=== PATIENT | male | born 1955 | race Caucasian/White ===

== ENCOUNTER 2019-01-29 03:47 | Inpatient (IN) | payer MEDICARE, OTHER ==
[2019-01-29] MEDS: SOD CHLORIDE 0.9% 1,000 ML IV (04:36)
[2019-01-29] MEDS: ONDANSETRON 4 MG INJ IV (04:37)
[2019-01-29] MEDS: morphine 4 MG/ML VIAL IV ×2 (04:37→07:25)
[2019-01-29 04:48] LABS: ADD MAN DIFF? NO
[2019-01-29 04:50] LABS: WHITE BLOOD COUNT 8.4 10^3/ul (4.8-10.8)
[2019-01-29 04:51] LABS: BASOPHIL # 0.1 10^3/ul (0.0-0.1); BASOPHILS % 0.6 % (0.0-2.0); EOSINOPHILS # 0.2 10^3/ul (0.0-0.5); EOSINOPHILS % 2.6 % (0.0-7.0); HEMATOCRIT 45.2 % (42.0-52.0); HEMOGLOBIN 14.6 g/dl (14.0-18.0); LYMPHOCYTES # 1.3 10^3/ul (0.8-2.9); LYMPHOCYTES % 15.5 % (15.0-51.0); MEAN CORPUSCULAR HEMOGLOBIN 31.7 pg (29.0-33.0); MEAN CORPUSCULAR HGB CONC 32.3 g/dl (32.0-37.0); MEAN CORPUSCULAR VOLUME 98.3 fl (82.0-101.0); MEAN PLATELET VOLUME 10.1 fl (7.4-10.4); MONOCYTES % 12.3 % (0.0-11.0); NEUTROPHIL # 5.8 10^3/ul (1.6-7.5); NEUTROPHILS % 68.6 % (39.0-77.0); PLATELET COUNT 296 10^3/UL (140-415)
[2019-01-29 04:54] LABS: INR 0.95; PROTIME 12.8 Sec (11.9-14.9)
[2019-01-29 04:55] LABS: PARTIAL THROMBOPLASTIN TIME 28.7 Sec (23.0-35.0)
[2019-01-29 04:56] LABS: ALANINE AMINOTRANSFERASE 21 IU/L (13-69); ALBUMIN 3.4 g/dl (3.3-4.9); ALKALINE PHOSPHATASE 72 IU/L (42-121); ANION GAP 5 (5-13); ASPARTATE AMINO TRANSFERASE 34 IU/L (15-46); BILIRUBIN,INDIRECT 0.8 mg/dl (0-1.1); BILIRUBIN,TOTAL 0.8 mg/dl (0.2-1.3); BLOOD UREA NITROGEN 16 mg/dl (7-20); CALCIUM 9.2 mg/dl (8.4-10.2); CARBON DIOXIDE 33 mmol/L (21-31); CHLORIDE 100 mmol/L (97-110); CREATININE 0.91 mg/dl (0.61-1.24); Estimated GFR > 60 mL/min (>60); GLUCOSE 103 mg/dl (70-220); POTASSIUM 4.6 mmol/L (3.5-5.1); SODIUM 138 mmol/L (135-144); TOTAL PROTEIN 7.6 g/dl (6.1-8.1)
[2019-01-29 05:08] LABS: TROPONIN-I < 0.012 ng/ml (0.000-0.120)
[2019-01-29 05:46] LABS: ADD UMIC NO; UR ASCORBIC ACID NEGATIVE (NEGATIVE); UR BILIRUBIN (Dip) NEGATIVE (NEGATIVE); UR BLOOD (Dip) NEGATIVE (NEGATIVE); UR CLARITY CLEAR (CLEAR); UR COLOR YELLOW (YELLOW); UR GLUCOSE (Dip) NEGATIVE (NEGATIVE); UR KETONES (Dip) NEGATIVE (NEGATIVE); UR LEUKOCYTE ESTERASE (Dip) NEGATIVE Leu/ul (NEGATIVE); UR NITRITE (Dip) NEGATIVE (NEGATIVE); UR SPECIFIC GRAVITY (Dip) 1.018 (1.003-1.030); UR TOTAL PROTEIN (Dip) NEGATIVE (NEGATIVE); UR UROBILINOGEN (Dip) NEGATIVE (NEGATIVE)
[2019-01-29] MEDS: ALBUTEROL 0.083% (NEB) 2.5 MG/3 ML AMP NEB (05:46)
[2019-01-29] MEDS: IPRATROPIUM (NEB) 0.5 MG/2.5 ML AMP NEB (05:46)
[2019-01-29] MEDS ORDERED: ONDANSETRON 4 MG INJ IV ×2 (06:00→07:00)
[2019-01-29] MEDS ORDERED: ACETAMINOPHEN 325 MG TAB PO ×2 (06:00→07:00)
[2019-01-29 06:16] LABS: LACTIC ACID 1.3 mmol/L (0.5-2.0)
[2019-01-29] MEDS ORDERED: NACL 0.9% 3 ML SYG IV (07:00)
[2019-01-29] MEDS: METHYLPREDNISOLONE 125 MG INJ IV (07:25)
[2019-01-29] MEDS: DIGOXIN 500 MCG INJ IV (07:39)
[2019-01-29] MEDS ORDERED: GUAIFENESIN/DM 5ML CUP PO (08:30)
[2019-01-29] MEDS ORDERED: VANCOMYCIN IV PER PHARMACY XX (08:30)
[2019-01-29] MEDS: CEFEPIME 1GM/50 ML (PMX) 50 ML IVPB (08:43)
[2019-01-29] MEDS ORDERED: NON-FORMULARY/PATIENT OWN MED (Fluticasone/Umeclidin/Vilanter (Trelegy Ellipta 100-62.5-25 IH (09:00)
[2019-01-29 09:33] LABS: LACTIC ACID 2.7 mmol/L (0.5-2.0)
[2019-01-29] MEDS: GABAPENTIN 100 MG CAP PO ×3 (09:45→21:04)
[2019-01-29] MEDS: ENOXAPARIN 40 MG/0.4 ML SYG SC (09:46)
[2019-01-29] MEDS: METOPROLOL 25 MG TAB PO (09:46)
[2019-01-29] MEDS: ASPIRIN 81 MG TAB PO (09:46)
[2019-01-29] MEDS: VANCOMYCIN 1.25 GM IN 0.9 % SOD CHLORIDE 250 ML IVPB (09:47)
[2019-01-29] MEDS ORDERED: VANCOMYCIN 1.25 GM IN 0.9 % SOD CHLORIDE 250 ML IVPB (10:00)
[2019-01-29] MEDS: HYDROCODONE/APAP (5/325) TAB PO ×4 (10:02→18:31)
[2019-01-29] MEDS ORDERED: METHYLPREDNISOLONE 40 MG INJ IV (11:00)
[2019-01-29] MEDS: LEVOFLOXACIN 500 MG TAB PO (11:37)
[2019-01-29 11:56] LABS: CREATINE KINASE 153 IU/L (23-200)
[2019-01-29 12:09] LABS: CK INDEX 0.5; CK-MB 0.76 ng/ml (0.0-2.4); TROPONIN-I < 0.012 ng/ml (0.000-0.120)
[2019-01-29] MEDS: METHYLPREDNISOLONE 40 MG INJ IV ×2 (13:16→21:04)
[2019-01-29] MEDS: ALBUTEROL/IPRATROPIUM (NEB) 3 ML AMP HHN ×2 (14:00→20:00)
[2019-01-29 17:10] LABS: CREATINE KINASE 150 IU/L (23-200)
[2019-01-29 17:23] LABS: CK INDEX 0.5; CK-MB 0.71 ng/ml (0.0-2.4); TROPONIN-I < 0.012 ng/ml (0.000-0.120)
[2019-01-29] MEDS ORDERED: VANCOMYCIN 1 GM 250 ML IVPB (21:00)
[2019-01-30] MEDS: HYDROCODONE/APAP (5/325) TAB PO ×6 (00:23→22:40)
[2019-01-30] MEDS: ALBUTEROL/IPRATROPIUM (NEB) 3 ML AMP HHN ×4 (02:00→20:00)
[2019-01-30] MEDS: ZOLPIDEM 5 MG TAB PO (02:08)
[2019-01-30] MEDS: METHYLPREDNISOLONE 40 MG INJ IV ×3 (05:12→22:40)
[2019-01-30 07:51] LABS: ADD MAN DIFF? NO
[2019-01-30 08:01] LABS: WHITE BLOOD COUNT 9.1 10^3/ul (4.8-10.8)
[2019-01-30 08:01] LABS: ABNORMAL IP MESSAGE 1; BASOPHILS % 0.1 % (0.0-2.0); HEMATOCRIT 41.1 % (42.0-52.0); HEMOGLOBIN 13.4 g/dl (14.0-18.0); LYMPHOCYTES # 0.5 10^3/ul (0.8-2.9); LYMPHOCYTES % 5.1 % (15.0-51.0); MEAN CORPUSCULAR HEMOGLOBIN 31.8 pg (29.0-33.0); MEAN CORPUSCULAR HGB CONC 32.6 g/dl (32.0-37.0); MEAN CORPUSCULAR VOLUME 97.4 fl (82.0-101.0); MEAN PLATELET VOLUME 9.8 fl (7.4-10.4); MONOCYTE # 0.5 10^3/ul (0.3-0.9); MONOCYTES % 5.5 % (0.0-11.0); NEUTROPHIL # 8.1 10^3/ul (1.6-7.5); NEUTROPHILS % 88.8 % (39.0-77.0); PLATELET COUNT 260 10^3/UL (140-415); POSITIVE DIFF @See below; RED BLOOD COUNT 4.22 10^6/ul (4.70-6.10); RED CELL DISTRIBUTION WIDTH 12.8 % (11.5-14.5)
[2019-01-30 08:21] LABS: ALANINE AMINOTRANSFERASE 24 IU/L (13-69); ALBUMIN 3.1 g/dl (3.3-4.9); ALBUMIN/GLOBULIN RATIO 0.81; ALKALINE PHOSPHATASE 71 IU/L (42-121); ANION GAP 7 (5-13); ASPARTATE AMINO TRANSFERASE 24 IU/L (15-46); BILIRUBIN,INDIRECT 0.5 mg/dl (0-1.1); BILIRUBIN,TOTAL 0.5 mg/dl (0.2-1.3); BLOOD UREA NITROGEN 26 mg/dl (7-20); CALCIUM 9.1 mg/dl (8.4-10.2); CARBON DIOXIDE 28 mmol/L (21-31); CHLORIDE 103 mmol/L (97-110); CREATININE 1.02 mg/dl (0.61-1.24); Estimated GFR > 60 mL/min (>60); GLUCOSE 115 mg/dl (70-220); MAGNESIUM 1.9 mg/dl (1.7-2.5); POTASSIUM 4.5 mmol/L (3.5-5.1); SODIUM 138 mmol/L (135-144); TOTAL PROTEIN 6.9 g/dl (6.1-8.1)
[2019-01-30 08:48] LABS: THYROID STIMULATING HORMONE 0.093 MIU/L (0.465-4.680)
[2019-01-30] MEDS ORDERED: METHYLPREDNISOLONE 40 MG INJ IV (09:00)
[2019-01-30] MEDS: LEVOFLOXACIN 500 MG TAB PO (09:16)
[2019-01-30] MEDS: GABAPENTIN 100 MG CAP PO ×3 (09:16→21:54)
[2019-01-30] MEDS: ASPIRIN 81 MG TAB PO (09:16)
[2019-01-30] MEDS: ENOXAPARIN 40 MG/0.4 ML SYG SC (09:22)
[2019-01-30] MEDS: DILTIAZEM (CD) 120 MG CAP PO (11:24)
[2019-01-31] MEDS: ALBUTEROL/IPRATROPIUM (NEB) 3 ML AMP HHN ×4 (01:55→20:00)
[2019-01-31] MEDS: HYDROCODONE/APAP (5/325) TAB PO ×4 (02:53→15:13)
[2019-01-31] MEDS: METHYLPREDNISOLONE 40 MG INJ IV ×3 (06:00→21:40)
[2019-01-31] MEDS: ASPIRIN 81 MG TAB PO (08:27)
[2019-01-31] MEDS: LEVOFLOXACIN 500 MG TAB PO (08:27)
[2019-01-31] MEDS: GABAPENTIN 100 MG CAP PO ×3 (08:27→21:40)
[2019-01-31] MEDS: DILTIAZEM (CD) 120 MG CAP PO (08:27)
[2019-01-31] MEDS: ENOXAPARIN 40 MG/0.4 ML SYG SC (08:28)
[2019-01-31 17:24] LABS: FREE T4 (FREE THYROXINE) 1.01 ng/dl (0.78-2.44)
[2019-01-31] MEDS: HYDROCODONE/APAP (10/325) TAB PO (19:21)
[2019-01-31] MEDS: ZOLPIDEM 5 MG TAB PO (23:20)
[2019-02-01] MEDS: HYDROCODONE/APAP (10/325) TAB PO ×4 (01:40→20:31)
[2019-02-01] MEDS: ALBUTEROL/IPRATROPIUM (NEB) 3 ML AMP HHN ×5 (02:00→20:34)
[2019-02-01] MEDS: METHYLPREDNISOLONE 40 MG INJ IV ×3 (06:24→22:04)
[2019-02-01] MEDS: ASPIRIN 81 MG TAB PO (08:07)
[2019-02-01] MEDS: DILTIAZEM (CD) 120 MG CAP PO (08:08)
[2019-02-01] MEDS: GABAPENTIN 100 MG CAP PO ×3 (08:08→20:34)
[2019-02-01] MEDS: LEVOFLOXACIN 500 MG TAB PO (08:08)
[2019-02-01] MEDS: ENOXAPARIN 40 MG/0.4 ML SYG SC (08:09)
[2019-02-02] MEDS: ALBUTEROL/IPRATROPIUM (NEB) 3 ML AMP HHN ×4 (01:13→20:08)
[2019-02-02] MEDS: ZOLPIDEM 5 MG TAB PO (01:28)
[2019-02-02] MEDS: HYDROCODONE/APAP (10/325) TAB PO ×4 (02:28→20:44)
[2019-02-02] MEDS: METHYLPREDNISOLONE 40 MG INJ IV ×3 (05:41→21:01)
[2019-02-02 08:30] LABS: ADD MAN DIFF? NO
[2019-02-02] MEDS: GABAPENTIN 100 MG CAP PO ×3 (08:30→19:55)
[2019-02-02] MEDS: LEVOFLOXACIN 500 MG TAB PO (08:30)
[2019-02-02] MEDS: DILTIAZEM (CD) 120 MG CAP PO (08:30)
[2019-02-02] MEDS: ASPIRIN 81 MG TAB PO (08:30)
[2019-02-02] MEDS: ENOXAPARIN 40 MG/0.4 ML SYG SC (08:32)
[2019-02-02 08:34] LABS: WHITE BLOOD COUNT 6.7 10^3/ul (4.8-10.8)
[2019-02-02 08:34] LABS: ABNORMAL IP MESSAGE 1; BASOPHILS % 0.1 % (0.0-2.0); HEMATOCRIT 39.1 % (42.0-52.0); HEMOGLOBIN 12.8 g/dl (14.0-18.0); LYMPHOCYTES # 0.5 10^3/ul (0.8-2.9); LYMPHOCYTES % 6.7 % (15.0-51.0); MEAN CORPUSCULAR HEMOGLOBIN 31.8 pg (29.0-33.0); MEAN CORPUSCULAR HGB CONC 32.7 g/dl (32.0-37.0); MEAN CORPUSCULAR VOLUME 97.3 fl (82.0-101.0); MEAN PLATELET VOLUME 9.6 fl (7.4-10.4); MONOCYTE # 0.3 10^3/ul (0.3-0.9); MONOCYTES % 3.9 % (0.0-11.0); NEUTROPHIL # 5.8 10^3/ul (1.6-7.5); NEUTROPHILS % 86.9 % (39.0-77.0); PLATELET COUNT 247 10^3/UL (140-415); POSITIVE DIFF @See below; RED BLOOD COUNT 4.02 10^6/ul (4.70-6.10); RED CELL DISTRIBUTION WIDTH 12.7 % (11.5-14.5)
[2019-02-02 09:28] LABS: ANION GAP 6 (5-13); BLOOD UREA NITROGEN 30 mg/dl (7-20); CALCIUM 8.9 mg/dl (8.4-10.2); CARBON DIOXIDE 30 mmol/L (21-31); CHLORIDE 101 mmol/L (97-110); CREATININE 0.84 mg/dl (0.61-1.24); Estimated GFR > 60 mL/min (>60); GLUCOSE 134 mg/dl (70-220); SODIUM 137 mmol/L (135-144)
[2019-02-02] MEDS: PANTOPRAZOLE 40 MG INJ IV (09:57)
[2019-02-02] MEDS: ALPRAZOLAM 0.25 MG TAB PO ×2 (11:20→19:55)
[2019-02-02] MEDS: TIOTROPIUM 18 MCG CAPSULE INHA DEV INH (12:09)
[2019-02-02] MEDS: FLUTICASONE/VILANTEROL 200-25 INH DEVICE INH (12:09)
[2019-02-02 12:22] LABS: HEPATITIS B SURFACE ANTIGEN NEGATIVE (NEGATIVE)
[2019-02-02 12:46] LABS: HEPATITIS C VIRAL ANTIBODY REACTIVE (NEGATIVE)
[2019-02-02] MEDS: PANTOPRAZOLE (EC) 40 MG TAB PO (18:05)
[2019-02-02 18:54] LABS: OCCULT BLOOD STOOL POSITIVE (NEGATIVE)
[2019-02-02] MEDS: MONTELUKAST 10 MG TAB PO (20:44)
[2019-02-03] MEDS: ZOLPIDEM 5 MG TAB PO ×2 (00:07→23:58)
[2019-02-03] MEDS: ALBUTEROL/IPRATROPIUM (NEB) 3 ML AMP HHN ×4 (01:45→20:00)
[2019-02-03] MEDS: HYDROCODONE/APAP (10/325) TAB PO ×4 (02:14→21:59)
[2019-02-03] MEDS: ALPRAZOLAM 0.25 MG TAB PO ×2 (05:47→19:54)
[2019-02-03] MEDS: METHYLPREDNISOLONE 40 MG INJ IV ×3 (05:47→21:58)
[2019-02-03] MEDS: PANTOPRAZOLE (EC) 40 MG TAB PO ×2 (05:47→17:23)
[2019-02-03 07:49] LABS: ADD MAN DIFF? NO
[2019-02-03 07:53] LABS: ABNORMAL IP MESSAGE 1; BASOPHILS % 0.4 % (0.0-2.0); HEMATOCRIT 37.7 % (42.0-52.0); HEMOGLOBIN 12.2 g/dl (14.0-18.0); LYMPHOCYTES # 0.5 10^3/ul (0.8-2.9); LYMPHOCYTES % 6.4 % (15.0-51.0); MEAN CORPUSCULAR HEMOGLOBIN 31.7 pg (29.0-33.0); MEAN CORPUSCULAR HGB CONC 32.4 g/dl (32.0-37.0); MEAN CORPUSCULAR VOLUME 97.9 fl (82.0-101.0); MEAN PLATELET VOLUME 9.5 fl (7.4-10.4); MONOCYTE # 0.4 10^3/ul (0.3-0.9); NEUTROPHILS % 83.6 % (39.0-77.0); PLATELET COUNT 235 10^3/UL (140-415); POSITIVE DIFF @See below; RED BLOOD COUNT 3.85 10^6/ul (4.70-6.10); RED CELL DISTRIBUTION WIDTH 12.8 % (11.5-14.5)
[2019-02-03 07:53] LABS: WHITE BLOOD COUNT 7.2 10^3/ul (4.8-10.8)
[2019-02-03 08:21] LABS: ALANINE AMINOTRANSFERASE 25 IU/L (13-69); ALKALINE PHOSPHATASE 49 IU/L (42-121); ANION GAP 5 (5-13); ASPARTATE AMINO TRANSFERASE 24 IU/L (15-46); BILIRUBIN,TOTAL 0.4 mg/dl (0.2-1.3); BLOOD UREA NITROGEN 26 mg/dl (7-20); CALCIUM 8.9 mg/dl (8.4-10.2); CARBON DIOXIDE 30 mmol/L (21-31); CHLORIDE 103 mmol/L (97-110); CREATININE 0.81 mg/dl (0.61-1.24); Estimated GFR > 60 mL/min (>60); GLUCOSE 128 mg/dl (70-220); POTASSIUM 5.1 mmol/L (3.5-5.1); SODIUM 138 mmol/L (135-144)
[2019-02-03 08:22] LABS: ALBUMIN/GLOBULIN RATIO 0.88; BILIRUBIN,INDIRECT 0.4 mg/dl (0-1.1); TOTAL PROTEIN 6.4 g/dl (6.1-8.1)
[2019-02-03] MEDS: FLUTICASONE/VILANTEROL 200-25 INH DEVICE INH (08:29)
[2019-02-03] MEDS: TIOTROPIUM 18 MCG CAPSULE INHA DEV INH (08:29)
[2019-02-03] MEDS: GABAPENTIN 100 MG CAP PO ×3 (08:29→19:54)
[2019-02-03] MEDS: ASPIRIN 81 MG TAB PO (08:29)
[2019-02-03] MEDS: DILTIAZEM (CD) 120 MG CAP PO (08:30)
[2019-02-03] MEDS: ENOXAPARIN 40 MG/0.4 ML SYG SC (08:31)
[2019-02-03 08:38] LABS: FREE T4 (FREE THYROXINE) 0.91 ng/dl (0.78-2.44)
[2019-02-03 08:39] LABS: FREE T3 2.38 pg/ml (2.77-5.27)
[2019-02-03 08:53] LABS: THYROID STIMULATING HORMONE 0.132 MIU/L (0.465-4.680)
[2019-02-03] MEDS: LEVOFLOXACIN 500 MG TAB PO (10:06)
[2019-02-03] MEDS: SUCRALFATE (100 MG/ML) 10ML CUP PO ×3 (14:31→19:54)
[2019-02-03] MEDS: MONTELUKAST 10 MG TAB PO (19:54)
[2019-02-04] MEDS: ALBUTEROL/IPRATROPIUM (NEB) 3 ML AMP HHN ×3 (01:48→13:27)
[2019-02-04] MEDS: HYDROCODONE/APAP (10/325) TAB PO ×3 (03:36→18:12)
[2019-02-04] MEDS: PANTOPRAZOLE (EC) 40 MG TAB PO ×2 (06:00→18:12)
[2019-02-04] MEDS: ALPRAZOLAM 0.25 MG TAB PO ×2 (07:44→19:35)
[2019-02-04] MEDS: DILTIAZEM (CD) 120 MG CAP PO (09:00)
[2019-02-04] MEDS: ENOXAPARIN 40 MG/0.4 ML SYG SC (09:00)
[2019-02-04] MEDS: TIOTROPIUM 18 MCG CAPSULE INHA DEV INH (09:54)
[2019-02-04] MEDS: FLUTICASONE/VILANTEROL 200-25 INH DEVICE INH (09:54)
[2019-02-04] MEDS: SUCRALFATE (100 MG/ML) 10ML CUP PO ×4 (09:56→20:45)
[2019-02-04] MEDS: METHYLPREDNISOLONE 40 MG INJ IV ×2 (09:56→20:45)
[2019-02-04] MEDS: GABAPENTIN 100 MG CAP PO ×3 (09:57→20:45)
[2019-02-04] MEDS: LEVOFLOXACIN 500 MG TAB PO (09:57)
[2019-02-04 17:36] LABS: ABNORMAL IP MESSAGE 1; HEMOGLOBIN 13.8 g/dl (14.0-18.0); MEAN CORPUSCULAR HEMOGLOBIN 31.6 pg (29.0-33.0); MEAN CORPUSCULAR HGB CONC 32.1 g/dl (32.0-37.0); MEAN CORPUSCULAR VOLUME 98.4 fl (82.0-101.0); MEAN PLATELET VOLUME 9.2 fl (7.4-10.4); PLATELET COUNT 285 10^3/UL (140-415); POSITIVE DIFF @See below; RED BLOOD COUNT 4.37 10^6/ul (4.70-6.10)
[2019-02-04 17:36] LABS: WHITE BLOOD COUNT 10.3 10^3/ul (4.8-10.8)
[2019-02-04 17:39] LABS: ADD MAN DIFF? YES
[2019-02-04 17:55] LABS: PHOSPHORUS 3.3 mg/dl (2.5-4.9)
[2019-02-04 17:55] LABS: ALANINE AMINOTRANSFERASE 59 IU/L (13-69); ALBUMIN 3.6 g/dl (3.3-4.9); ALKALINE PHOSPHATASE 60 IU/L (42-121); ANION GAP 7 (5-13); ASPARTATE AMINO TRANSFERASE 40 IU/L (15-46); BILIRUBIN,INDIRECT 0.2 mg/dl (0-1.1); BILIRUBIN,TOTAL 0.2 mg/dl (0.2-1.3); BLOOD UREA NITROGEN 28 mg/dl (7-20); CALCIUM 8.6 mg/dl (8.4-10.2); CARBON DIOXIDE 30 mmol/L (21-31); CHLORIDE 98 mmol/L (97-110); CREATININE 0.89 mg/dl (0.61-1.24); Estimated GFR > 60 mL/min (>60); GLUCOSE 125 mg/dl (70-220); POTASSIUM 4.1 mmol/L (3.5-5.1); SODIUM 135 mmol/L (135-144); TOTAL PROTEIN 7.2 g/dl (6.1-8.1)
[2019-02-04 18:08] LABS: ANISOCYTOSIS 1+ (0-0); BAND NEUTROPHILS #M 0.2 10^3/ul (0.0-0.6); BAND NEUTROPHILS % (M) 2 % (0-4); ERYTHROBLAST% (NRBC) (M) 1 % (0-0); GIANT THROMBO% (M) 1 % (0-0); LYMPHOCYTES #M 0.1 10^3/ul (0.8-2.9); LYMPHOCYTES % (M) 1 % (15-51); MICROCYTOSIS 1+ (0-0); MONOCYTE #M 0.6 10^3/ul (0.3-0.9); MONOCYTES % (M) 6 % (0-11); MYELOCYTES #M 0.1 10^3/ul (0.0-0.0); MYELOCYTES % (M) 1 % (0-0); PLATELET ESTIMATE NORMAL; POLYCHROMASIA 1+ (0-0); REACTIVE LYMPHOCYTES #M 0.2 10^3/ul (0.0-0.0); REACTIVE LYMPHOCYTES% (M) 2 % (0-0); SEG NEUT #M 9.1 10^3/ul (1.6-7.5); SEGMENTED NEUTROPHILS (M) % 88 % (39-77); SMUDGE%M 2 % (0-0)
[2019-02-04] MEDS ORDERED: HYDROCODONE/HOMATROPINE 5ML CUP PO (18:30)
[2019-02-04] MEDS: MONTELUKAST 10 MG TAB PO (20:45)
[2019-02-05] MEDS: HYDROCODONE/APAP (10/325) TAB PO ×6 (01:15→21:41)
[2019-02-05] MEDS: PANTOPRAZOLE (EC) 40 MG TAB PO ×2 (06:14→17:02)
[2019-02-05] MEDS: ALBUTEROL/IPRATROPIUM (NEB) 3 ML AMP HHN ×4 (08:00→23:45)
[2019-02-05] MEDS: SUCRALFATE (100 MG/ML) 10ML CUP PO ×4 (08:09→20:41)
[2019-02-05] MEDS: TIOTROPIUM 18 MCG CAPSULE INHA DEV INH (08:09)
[2019-02-05] MEDS: LEVOFLOXACIN 500 MG TAB PO (08:09)
[2019-02-05] MEDS: GABAPENTIN 100 MG CAP PO ×3 (08:09→20:41)
[2019-02-05] MEDS: METHYLPREDNISOLONE 40 MG INJ IV ×2 (08:09→20:41)
[2019-02-05] MEDS: DILTIAZEM (CD) 120 MG CAP PO (08:10)
[2019-02-05] MEDS: ALPRAZOLAM 0.25 MG TAB PO ×2 (08:10→17:02)
[2019-02-05] MEDS: FLUTICASONE/VILANTEROL 200-25 INH DEVICE INH (08:11)
[2019-02-05 08:56] LABS: ADD MAN DIFF? NO
[2019-02-05 09:03] LABS: WHITE BLOOD COUNT 8.8 10^3/ul (4.8-10.8)
[2019-02-05 09:03] LABS: ABNORMAL IP MESSAGE 1; BASOPHIL # 0.1 10^3/ul (0.0-0.1); BASOPHILS % 0.6 % (0.0-2.0); HEMATOCRIT 40.8 % (42.0-52.0); HEMOGLOBIN 13.2 g/dl (14.0-18.0); LYMPHOCYTES # 0.5 10^3/ul (0.8-2.9); LYMPHOCYTES % 5.3 % (15.0-51.0); MEAN CORPUSCULAR HEMOGLOBIN 31.7 pg (29.0-33.0); MEAN CORPUSCULAR HGB CONC 32.4 g/dl (32.0-37.0); MEAN CORPUSCULAR VOLUME 97.8 fl (82.0-101.0); MEAN PLATELET VOLUME 8.9 fl (7.4-10.4); MONOCYTE # 0.7 10^3/ul (0.3-0.9); MONOCYTES % 7.7 % (0.0-11.0); NEUTROPHIL # 6.9 10^3/ul (1.6-7.5); NEUTROPHILS % 78.7 % (39.0-77.0); PLATELET COUNT 251 10^3/UL (140-415); POSITIVE DIFF @See below; RED BLOOD COUNT 4.17 10^6/ul (4.70-6.10)
[2019-02-05 09:25] LABS: ANION GAP 4 (5-13); BLOOD UREA NITROGEN 33 mg/dl (7-20); CALCIUM 8.4 mg/dl (8.4-10.2); CARBON DIOXIDE 32 mmol/L (21-31); CHLORIDE 99 mmol/L (97-110); CREATININE 0.87 mg/dl (0.61-1.24); Estimated GFR > 60 mL/min (>60); GLUCOSE 130 mg/dl (70-220); POTASSIUM 4.5 mmol/L (3.5-5.1); SODIUM 135 mmol/L (135-144)
[2019-02-05 09:26] LABS: HEMOGLOBIN A1C 5.5 % (0-5.9)
[2019-02-05 10:11] LABS: ANISOCYTOSIS 1+ (0-0); BAND NEUTROPHILS #M 0.5 10^3/ul (0.0-0.6); BAND NEUTROPHILS % (M) 6 % (0-4); HYPOCHROMASIA 1+ (0-0); LYMPHOCYTES #M 0.8 10^3/ul (0.8-2.9); LYMPHOCYTES % (M) 10 % (15-51); METAMYELOCYTES %M 1 % (0-0); MONOCYTE #M 0.1 10^3/ul (0.3-0.9); MONOCYTES % (M) 2 % (0-11); PLATELET ESTIMATE NORMAL; SEG NEUT #M 7.2 10^3/ul (1.6-7.5); SEGMENTED NEUTROPHILS (M) % 81 % (39-77); SMUDGE%M 2 % (0-0)
[2019-02-05] MEDS: MONTELUKAST 10 MG TAB PO (20:41)
[2019-02-06] MEDS: HYDROCODONE/APAP (10/325) TAB PO ×6 (01:45→21:46)
[2019-02-06] MEDS: PANTOPRAZOLE (EC) 40 MG TAB PO ×2 (05:26→18:00)
[2019-02-06 06:50] LABS: ADD MAN DIFF? NO
[2019-02-06 06:53] LABS: ABNORMAL IP MESSAGE 1; BASOPHILS % 0.3 % (0.0-2.0); HEMATOCRIT 39.4 % (42.0-52.0); LYMPHOCYTES # 0.5 10^3/ul (0.8-2.9); LYMPHOCYTES % 4.6 % (15.0-51.0); MEAN CORPUSCULAR HEMOGLOBIN 31.7 pg (29.0-33.0); MEAN CORPUSCULAR VOLUME 96.1 fl (82.0-101.0); MEAN PLATELET VOLUME 9.2 fl (7.4-10.4); MONOCYTE # 0.7 10^3/ul (0.3-0.9); MONOCYTES % 7.4 % (0.0-11.0); NEUTROPHIL # 7.9 10^3/ul (1.6-7.5); NEUTROPHILS % 78.6 % (39.0-77.0); PLATELET COUNT 245 10^3/UL (140-415); POSITIVE DIFF @See below; RED CELL DISTRIBUTION WIDTH 13.5 % (11.5-14.5)
[2019-02-06 07:14] LABS: INR 0.95; PROTIME 12.8 Sec (11.9-14.9)
[2019-02-06 07:25] LABS: ALANINE AMINOTRANSFERASE 54 IU/L (13-69); ALBUMIN 2.6 g/dl (3.3-4.9); ALBUMIN/GLOBULIN RATIO 0.86; ALKALINE PHOSPHATASE 46 IU/L (42-121); ANION GAP 5 (5-13); ASPARTATE AMINO TRANSFERASE 31 IU/L (15-46); BILIRUBIN,INDIRECT 0.5 mg/dl (0-1.1); BILIRUBIN,TOTAL 0.5 mg/dl (0.2-1.3); BLOOD UREA NITROGEN 30 mg/dl (7-20); CALCIUM 8.1 mg/dl (8.4-10.2); CARBON DIOXIDE 28 mmol/L (21-31); CHLORIDE 101 mmol/L (97-110); CREATININE 0.77 mg/dl (0.61-1.24); Estimated GFR > 60 mL/min (>60); GLUCOSE 123 mg/dl (70-220); POTASSIUM 4.3 mmol/L (3.5-5.1); SODIUM 134 mmol/L (135-144); TOTAL PROTEIN 5.6 g/dl (6.1-8.1)
[2019-02-06 07:26] LABS: PHOSPHORUS 3.1 mg/dl (2.5-4.9)
[2019-02-06 07:26] LABS: MAGNESIUM 2.1 mg/dl (1.7-2.5)
[2019-02-06] MEDS: ALBUTEROL/IPRATROPIUM (NEB) 3 ML AMP HHN ×2 (08:00→14:24)
[2019-02-06] MEDS: DILTIAZEM (CD) 120 MG CAP PO (09:00)
[2019-02-06] MEDS: SUCRALFATE (100 MG/ML) 10ML CUP PO ×4 (09:06→20:17)
[2019-02-06] MEDS: FLUTICASONE/VILANTEROL 200-25 INH DEVICE INH (09:06)
[2019-02-06] MEDS: METHYLPREDNISOLONE 40 MG INJ IV (09:06)
[2019-02-06] MEDS: GABAPENTIN 100 MG CAP PO ×3 (09:07→20:17)
[2019-02-06] MEDS: LEVOFLOXACIN 500 MG TAB PO (09:07)
[2019-02-06 09:46] LABS: ANISOCYTOSIS 1+ (0-0); BAND NEUTROPHILS #M 0.6 10^3/ul (0.0-0.6); BAND NEUTROPHILS % (M) 6 % (0-4); BURR CELLS 1+ (0-0); LYMPHOCYTES #M 0.8 10^3/ul (0.8-2.9); LYMPHOCYTES % (M) 8 % (15-51); METAMYELOCYTES #M 0.3 10^3/ul (0.0-0.0); METAMYELOCYTES %M 3 % (0-0); MONOCYTE #M 0.4 10^3/ul (0.3-0.9); MONOCYTES % (M) 4 % (0-11); MYELOCYTES #M 0.3 10^3/ul (0.0-0.0); MYELOCYTES % (M) 3 % (0-0); OVALOCYTES 1+ (0-0); PLATELET ESTIMATE NORMAL; POLYCHROMASIA 3+ (0-0); REACTIVE LYMPHOCYTES #M 0.2 10^3/ul (0.0-0.0); REACTIVE LYMPHOCYTES% (M) 2 % (0-0); SEG NEUT #M 7.5 10^3/ul (1.6-7.5); SEGMENTED NEUTROPHILS (M) % 74 % (39-77); SMUDGE%M 3 % (0-0)
[2019-02-06] MEDS: TIOTROPIUM 18 MCG CAPSULE INHA DEV INH (13:03)
[2019-02-06] MEDS: ALPRAZOLAM 0.25 MG TAB PO (14:47)
[2019-02-06] MEDS: DEXTROSE 5%-0.45% NACL 1,000 ML IV (16:14)
[2019-02-06] MEDS: PROPOFOL 20 ML ×2 (17:11→18:09)
[2019-02-06] MEDS: MIDAZOLAM 1 MG/ML 2 ML INJ (17:11)
[2019-02-06] MEDS ORDERED: morphine 2 MG INJ IV (17:30)
[2019-02-06] MEDS ORDERED: LABETALOL HCL 20MG INJ IV (17:30)
[2019-02-06] MEDS ORDERED: FENTAnyl 50 MCG/ML VIAL IV (17:30)
[2019-02-06] MEDS ORDERED: ONDANSETRON 4 MG INJ IV (17:30)
[2019-02-06] MEDS ORDERED: hydrALAzine 20 MG INJ IV (17:30)
[2019-02-06] MEDS ORDERED: METOCLOPRAMIDE 10 MG INJ IV (17:30)
[2019-02-06] MEDS: MONTELUKAST 10 MG TAB PO (20:17)
[2019-02-06] MEDS: ZOLPIDEM 5 MG TAB PO ×2 (23:52)
[2019-02-07] MEDS: ALBUTEROL/IPRATROPIUM (NEB) 3 ML AMP HHN ×3 (01:00→16:00)
[2019-02-07] MEDS: HYDROCODONE/APAP (10/325) TAB PO ×5 (02:03→21:19)
[2019-02-07] MEDS: PANTOPRAZOLE (EC) 40 MG TAB PO ×2 (05:57→17:35)
[2019-02-07 08:07] LABS: ADD MAN DIFF? NO
[2019-02-07] MEDS: GABAPENTIN 100 MG CAP PO ×3 (08:12→20:17)
[2019-02-07] MEDS: METHYLPREDNISOLONE 40 MG INJ IV (08:12)
[2019-02-07] MEDS: TIOTROPIUM 18 MCG CAPSULE INHA DEV INH (08:12)
[2019-02-07] MEDS: SUCRALFATE (100 MG/ML) 10ML CUP PO ×4 (08:12→20:17)
[2019-02-07] MEDS: FLUTICASONE/VILANTEROL 200-25 INH DEVICE INH (08:13)
[2019-02-07] MEDS: DILTIAZEM (CD) 120 MG CAP PO (08:13)
[2019-02-07 08:14] LABS: WHITE BLOOD COUNT 11.4 10^3/ul (4.8-10.8)
[2019-02-07 08:14] LABS: ABNORMAL IP MESSAGE 1; BASOPHIL # 0.1 10^3/ul (0.0-0.1); BASOPHILS % 0.4 % (0.0-2.0); EOSINOPHILS % 0.1 % (0.0-7.0); HEMATOCRIT 39.9 % (42.0-52.0); HEMOGLOBIN 13.2 g/dl (14.0-18.0); LYMPHOCYTES % 8.9 % (15.0-51.0); MEAN CORPUSCULAR HEMOGLOBIN 31.7 pg (29.0-33.0); MEAN CORPUSCULAR HGB CONC 33.1 g/dl (32.0-37.0); MEAN CORPUSCULAR VOLUME 95.7 fl (82.0-101.0); MEAN PLATELET VOLUME 9.5 fl (7.4-10.4); MONOCYTE # 1.2 10^3/ul (0.3-0.9); MONOCYTES % 10.2 % (0.0-11.0); NEUTROPHIL # 8.4 10^3/ul (1.6-7.5); NEUTROPHILS % 74.2 % (39.0-77.0); PLATELET COUNT 279 10^3/UL (140-415); POSITIVE DIFF @See below; RED BLOOD COUNT 4.17 10^6/ul (4.70-6.10); RED CELL DISTRIBUTION WIDTH 13.5 % (11.5-14.5)
[2019-02-07 08:29] LABS: ALANINE AMINOTRANSFERASE 40 IU/L (13-69); ALBUMIN 2.9 g/dl (3.3-4.9); ALKALINE PHOSPHATASE 36 IU/L (42-121); ANION GAP 5 (5-13); ASPARTATE AMINO TRANSFERASE 41 IU/L (15-46); BILIRUBIN,INDIRECT 0.5 mg/dl (0-1.1); BILIRUBIN,TOTAL 0.5 mg/dl (0.2-1.3); BLOOD UREA NITROGEN 33 mg/dl (7-20); CALCIUM 7.9 mg/dl (8.4-10.2); CARBON DIOXIDE 27 mmol/L (21-31); CHLORIDE 101 mmol/L (97-110); CREATININE 0.83 mg/dl (0.61-1.24); Estimated GFR > 60 mL/min (>60); GLUCOSE 76 mg/dl (70-220); POTASSIUM 4.3 mmol/L (3.5-5.1); SODIUM 133 mmol/L (135-144); TOTAL PROTEIN 6.1 g/dl (6.1-8.1)
[2019-02-07 10:02] LABS: BAND NEUTROPHILS #M 0.7 10^3/ul (0.0-0.6); BAND NEUTROPHILS % (M) 7 % (0-4); ERYTHROBLAST% (NRBC) (M) 1 % (0-0); LYMPHOCYTES #M 0.9 10^3/ul (0.8-2.9); LYMPHOCYTES % (M) 8 % (15-51); MONOCYTE #M 1.2 10^3/ul (0.3-0.9); MONOCYTES % (M) 11 % (0-11); MYELOCYTES #M 0.1 10^3/ul (0.0-0.0); MYELOCYTES % (M) 1 % (0-0); PLATELET ESTIMATE NORMAL; POLYCHROMASIA 3+ (0-0); REACTIVE LYMPHOCYTES #M 0.2 10^3/ul (0.0-0.0); REACTIVE LYMPHOCYTES% (M) 2 % (0-0); SEG NEUT #M 8.4 10^3/ul (1.6-7.5); SEGMENTED NEUTROPHILS (M) % 73 % (39-77); SMUDGE%M 17 % (0-0)
[2019-02-07] MEDS: DEXTROSE 5%-0.45% NACL 1,000 ML IV (11:38)
[2019-02-07] MEDS: ALPRAZOLAM 0.25 MG TAB PO (14:06)
[2019-02-07] MEDS: MONTELUKAST 10 MG TAB PO (20:10)
[2019-02-07] MEDS: ZOLPIDEM 5 MG TAB PO (23:34)
[2019-02-08] MEDS: HYDROCODONE/APAP (10/325) TAB PO ×5 (03:35→20:44)
[2019-02-08] MEDS: PANTOPRAZOLE (EC) 40 MG TAB PO ×2 (06:05→19:00)
[2019-02-08] MEDS: ALBUTEROL/IPRATROPIUM (NEB) 3 ML AMP HHN ×3 (08:00→16:00)
[2019-02-08] MEDS: DILTIAZEM (CD) 120 MG CAP PO (08:14)
[2019-02-08] MEDS: METHYLPREDNISOLONE 40 MG INJ IV (08:14)
[2019-02-08] MEDS: GABAPENTIN 100 MG CAP PO ×3 (08:14→20:43)
[2019-02-08] MEDS: FLUTICASONE/VILANTEROL 200-25 INH DEVICE INH (08:17)
[2019-02-08] MEDS: TIOTROPIUM 18 MCG CAPSULE INHA DEV INH (08:17)
[2019-02-08] MEDS: SUCRALFATE (100 MG/ML) 10ML CUP PO ×4 (08:17→20:44)
[2019-02-08] MEDS: ALPRAZOLAM 0.25 MG TAB PO ×2 (11:33→19:00)
[2019-02-08] MEDS: MONTELUKAST 10 MG TAB PO (20:43)
[2019-02-09] MEDS: ALPRAZOLAM 0.25 MG TAB PO ×2 (00:25→13:02)
[2019-02-09] MEDS: HYDROCODONE/APAP (10/325) TAB PO ×6 (00:25→23:36)
[2019-02-09] MEDS: PANTOPRAZOLE (EC) 40 MG TAB PO ×2 (05:45→18:22)
[2019-02-09] MEDS: ALBUTEROL/IPRATROPIUM (NEB) 3 ML AMP HHN ×4 (08:00→23:22)
[2019-02-09] MEDS: SUCRALFATE (100 MG/ML) 10ML CUP PO ×4 (09:00→20:50)
[2019-02-09] MEDS: DILTIAZEM (CD) 120 MG CAP PO (09:00)
[2019-02-09] MEDS: METHYLPREDNISOLONE 40 MG INJ IV (09:22)
[2019-02-09] MEDS: GABAPENTIN 100 MG CAP PO ×3 (09:32→20:50)
[2019-02-09] MEDS: FLUTICASONE/VILANTEROL 200-25 INH DEVICE INH (13:03)
[2019-02-09] MEDS: TIOTROPIUM 18 MCG CAPSULE INHA DEV INH (13:03)
[2019-02-09] MEDS ORDERED: METHYLPREDNISOLONE 4 MG TAB PO (17:00)
[2019-02-09] MEDS: MONTELUKAST 5 MG TAB PO (20:51)
[2019-02-10] MEDS: ZOLPIDEM 5 MG TAB PO (02:29)
[2019-02-10] MEDS: HYDROCODONE/APAP (10/325) TAB PO ×3 (04:44→12:58)
[2019-02-10] MEDS: PANTOPRAZOLE (EC) 40 MG TAB PO (06:28)
[2019-02-10] MEDS ORDERED: METHYLPREDNISOLONE 4 MG TAB PO ×5 (07:00→21:00)
[2019-02-10] MEDS: ALPRAZOLAM 0.25 MG TAB PO (07:21)
[2019-02-10] MEDS: GABAPENTIN 100 MG CAP PO ×2 (08:35→13:31)
[2019-02-10] MEDS: SUCRALFATE (100 MG/ML) 10ML CUP PO ×2 (08:35→13:00)
[2019-02-10] MEDS: DILTIAZEM (CD) 120 MG CAP PO (08:35)
[2019-02-10] MEDS: TIOTROPIUM 18 MCG CAPSULE INHA DEV INH (08:36)
[2019-02-10] MEDS: FLUTICASONE/VILANTEROL 200-25 INH DEVICE INH (08:36)
[2019-02-10] MEDS: ALBUTEROL/IPRATROPIUM (NEB) 3 ML AMP HHN (08:45)
[2019-02-10] MEDS ORDERED: METHYLPREDNISOLONE (MEDROL) DOSE PACK PO (16:30)
[2019-02-11] MEDS ORDERED: METHYLPREDNISOLONE 4 MG TAB PO ×5 (07:00→21:00)
[2019-02-12] MEDS ORDERED: METHYLPREDNISOLONE 4 MG TAB PO (21:00)
== END 2019-02-10 14:45 | DRG 190 ==
LOC: E/R 03:47 → 2NE 02-08 23:49 → TEL 05:56
PROC: 0DB68ZX Excision of Stomach, Via Natural or Artificial Opening Endoscopic, Diagnostic (ICD-10-PCS; principal; 2019-02-06 16:35)
PROC: 0DB78ZX Excision of Stomach, Pylorus, Via Natural or Artificial Opening Endoscopic, Diagnostic (ICD-10-PCS; 2019-02-06 16:35)
PROC: 0DB58ZX Excision of Esophagus, Via Natural or Artificial Opening Endoscopic, Diagnostic (ICD-10-PCS; 2019-02-06 16:35)
DX: J44.1 Chronic obstructive pulmonary disease with (acute) exacerbation (principal); J18.9 Pneumonia, unspecified organism; J96.01 Acute respiratory failure with hypoxia; K25.4 Chronic or unspecified gastric ulcer with hemorrhage; K26.4 Chronic or unspecified duodenal ulcer with hemorrhage; M48.50XA Collapsed vertebra, not elsewhere classified, site unspecified, initial encounter for fracture; J44.0 Chronic obstructive pulmonary disease with (acute) lower respiratory infection; I48.0 Paroxysmal atrial fibrillation; I10 Essential (primary) hypertension; B18.2 Chronic viral hepatitis C; D64.9 Anemia, unspecified; K80.20 Calculus of gallbladder without cholecystitis without obstruction; E07.81 Sick-euthyroid syndrome; Z87.891 Personal history of nicotine dependence; Z79.82 Long term (current) use of aspirin
CPT/HCPCS: 36415; 71045; 71250; 76705; 80048; 80053; 81003; 82270; 82306; 82550; 82553; 83036; 83605; 83735; 84100; 84439; 84443; 84481; 84484; 85025; 85610; 85730; 86803; 87040-91; 87045; 87086; 87340; 87522; 88305; 88312; 88313; 93005; 93970; 94640; 94664; 96374; 96375; 99285-25; G0378